=== PATIENT | female | born 1995 | race American Indian/Alaskan Native ===

== ENCOUNTER 2020-03-24 23:17 | Observation (INO) | payer OTHER ==
[2020-03-24] MEDS ORDERED: ONDANSETRON 4 MG/2 ML INJ IV ONE (23:37)
[2020-03-24] MEDS ORDERED: MORPHINE 4 MG/1 ML INJ IV ONE (23:37)
[2020-03-24] MEDS ORDERED: SODIUM CHLORIDE 0.9% 1000 ML 1,000 ML IV ONE (23:38)
[2020-03-24] MEDS ORDERED: FAMOTIDINE 20 MG/2 ML INJ IV ONE (23:38)
[2020-03-25 00:49] LABS: Alanine Aminotransferase 10 units/L (7-56); Albumin 4.3 g/dL (3.9-5); BUN/Creatinine Ratio 18; Blood Urea Nitrogen 11 mg/dL (7-17); Calcium 9.7 mg/dL (8.4-10.2); Hemolysis Index 10
[2020-03-25 01:06] LABS: Bacteria,Urine 1+ /HPF (Negative); Bilirubin,Urine NEG (Negative); Blood,Urine LG (Negative); Color,Urine Yellow (Yellow); Urobilinogen,Urine < 2.0 mg/dL (<2.0)
[2020-03-25 01:12] LABS: Basophils # (Auto) 0.1 K/mm3 (0.0-0.1); Basophils % (Auto) 0.8 % (0.0-1.8); Eosinophils # (Auto) 0.1 K/mm3 (0.0-0.4); Eosinophils % (Auto) 1.1 % (0.0-4.3); Hematocrit 37.7 % (30.3-42.9); Hemoglobin 12.8 gm/dl (10.1-14.3); Lymphocytes # (Auto) 3.4 K/mm3 (1.2-5.4); Lymphocytes % (Auto) 45.8 % (13.4-35.0); Mean Corpuscular HGB Conc 34 % (30-34); Mean Corpuscular Volume 96 fl (79-97); Monocytes # (Auto) 0.4 K/mm3 (0.0-0.8); Monocytes % (Auto) 4.9 % (0.0-7.3); Platelet Count 210 K/mm3 (140-440); Red Blood Count 3.94 M/mm3 (3.65-5.03)
[2020-03-25] MEDS ORDERED: cefTRIAXone/NS 1 GM/50 ML 1 GM/50 ML BAG IV ONE (01:30)
[2020-03-25] MEDS ORDERED: HYDROmorphone 1 MG/1 ML INJ IV ONE (03:15)
[2020-03-25] MEDS ORDERED: ONDANSETRON 4 MG/2 ML INJ IV ONE (03:15)
[2020-03-25] MEDS ORDERED: LACTATED RINGERS 1,000 ML IV SCH (04:00)
[2020-03-25] MEDS ORDERED: ONDANSETRON 4 MG/2 ML INJ IV PRN (04:41)
[2020-03-25] MEDS ORDERED: ACETAMINOPHEN 650 MG RECT SUPP PR PRN (04:43)
[2020-03-25] MEDS: metroNIDAZOLE/NS 500 MG/100 ML 500 MG/100 ML BAG IV SCH ×3 (05:52→23:07)
[2020-03-25] MEDS: D5W/0.45% NACL 1,000 ML IV SCH ×2 (05:52→23:07)
[2020-03-25] MEDS: HYDROmorphone 1 MG/1 ML INJ IV PRN ×5 (05:56→23:12)
[2020-03-25] MEDS: POTASSIUM CHLORIDE 10 MEQ 10 MEQ/100 ML BAG IV SCH ×2 (07:18→08:28)
[2020-03-25] MEDS ORDERED: SODIUM CHLORIDE 0.9% 500 ML 500 ML ONE (07:56)
[2020-03-25] MEDS: KETOROLAC 30 MG/1 ML INJ IV SCH ×2 (10:28→16:20)
[2020-03-25] MEDS: cefTRIAXone/NS 1 GM/50 ML 1 GM/50 ML BAG IV SCH (11:42)
[2020-03-26] MEDS: KETOROLAC 30 MG/1 ML INJ IV SCH ×3 (03:05→10:23)
[2020-03-26] MEDS: metroNIDAZOLE/NS 500 MG/100 ML 500 MG/100 ML BAG IV SCH (06:39)
[2020-03-26] MEDS ORDERED: WATER FOR INJ Sterile (PF) 10 ML ONE (08:26)
[2020-03-26] MEDS ORDERED: SINCALIDE 5 MCG VIAL IV ONE ×2 (08:26→08:36)
[2020-03-26] MEDS ORDERED: WATER FOR INJ Sterile (PF) 10 ML IV ONE (08:37)
[2020-03-26 10:29] LABS: Eosinophils # (Auto) 0.1 K/mm3 (0.0-0.4); Eosinophils % (Auto) 1.6 % (0.0-4.3); Hematocrit 38.6 % (30.3-42.9); Hemoglobin 13.2 gm/dl (10.1-14.3); Lymphocytes # (Auto) 1.9 K/mm3 (1.2-5.4); Lymphocytes % (Auto) 44.9 % (13.4-35.0); Mean Corpuscular HGB Conc 34 % (30-34); Mean Corpuscular Volume 97 fl (79-97); Monocytes # (Auto) 0.3 K/mm3 (0.0-0.8); Monocytes % (Auto) 7.1 % (0.0-7.3); Platelet Count 175 K/mm3 (140-440); Red Blood Count 3.99 M/mm3 (3.65-5.03); Red Cell Distribution Width 14.2 % (13.2-15.2)
[2020-03-26] MEDS: cefTRIAXone/NS 1 GM/50 ML 1 GM/50 ML BAG IV SCH (10:46)
[2020-03-26] MEDS: D5W/0.45% NACL 1,000 ML IV SCH (10:46)
[2020-03-26 10:51] LABS: Alanine Aminotransferase 15 units/L (7-56); Albumin 4.2 g/dL (3.9-5); BUN/Creatinine Ratio 7; Blood Urea Nitrogen 4 mg/dL (7-17); Calcium 9.1 mg/dL (8.4-10.2); Hemolysis Index 22
[2020-03-26 16:16] VITALS: BP 146/87
== END 2020-03-26 19:00 | disposition home or self-care (01) ==
LOC: ED 23:17 → 3B-SURG 03-25 04:15
PROVIDERS: ADMIT Internal Medicine; ATTEND Internal Medicine
DX: K56.50 Intestinal adhesions [bands], unspecified as to partial versus complete obstruction (principal); R11.2 Nausea with vomiting, unspecified; N39.0 Urinary tract infection, site not specified; I10 Essential (primary) hypertension; F17.200 Nicotine dependence, unspecified, uncomplicated; Z79.899 Other long term (current) drug therapy
CPT/HCPCS: 36415; 74177; 76700; 78227; 80053; 81001; 83690; 84703; 85025; 87076; 87086; 87186; 96361; 96365; 96366; 96367; 96375; 96376; 99285; A9537; G0378; J0696; J1170; J1885; J2270; J2405; J2805; J3480; J7030; J7040; Q9967; 99291